=== PATIENT | male | born 1960 | race Caucasian/White ===

== ENCOUNTER 2017-03-08 12:53 | Emergency (ER) | payer OTHER ==
[~2017-03-08] VITALS: Ht 167.6 cm; Wt 84.0 kg
[~2017-03-08 12:53] MED LIST: ADVAIR 100/501 DISK IH; ADVAIR 250/501 DISK IH; ASPIR 8181 M1 PO; ASPIR-LOW81 MG PO; COZAAR25 MG PO; COZAAR50 MG PO; CYANOCOBALAM1000 MCG PO; FLEXERIL5 MG PO; FLOMAX0.4 MG PO; LEVOTHYROXINE50 MCG PO; LOMOTIL TABLET1 EACH PO; LOSARTAN POTASS25 MG PO; MILLIPRED DP5 MG PO; MOTRIN600 MG PO; MOTRIN800 MG PO; NAPROSYN500 MG PO; OMEPRAZOLE40 M1 PO; OXCARBAZEPINE150 MG PO; OXCARBAZEPINE300 MG PO; OXYCODONE HCL5 MG PO; PRAVACHOL40 MG PO; PRAVASTATIN SOD40 MG PO; PRILOSEC40 MG PO; PROAIR HFA8.5 GM IH; SYNTHROID50 MCG PO; TAMSULOSIN HCL0.4 MG PO; TOPAMAX25 MG PO; TOPIRAMATE25 MG PO; TRAZODONE HCL50 MG PO; TYLENOL WITH C1 EACH PO; VALIUM5 MG PO; ZESTRIL,PRINIVI10 MG PO; ZOFRAN4 MG PO
[2017-03-08 14:49] LABS: HEMATOCRIT 44.8 % (38.0-50.0); HEMOGLOBIN 16.3 G/DL (12.5-16.6); MCH 30.3 PG (29.0-34.0); MCHC 36.4 G/DL (30.0-36.0); MCV 83.3 FL (86-99); PLATELET COUNT 447 K/uL (156-360); RBC DIS.WIDTH-CV 12.8 % (11.8-14.6); RBC DIS.WIDTH-SD 38.9 % (39-53); RED BLOOD COUNT 5.38 M/uL (4.00-5.50); WHITE BLOOD COUNT 16.8 K/uL (4.1-10.2)
[2017-03-08 14:58] LABS: ALBUMIN 4.8 g/dL (3.2-4.8)
[2017-03-08 14:59] LABS: CHLORIDE 97 mEq/L (99-109); POTASSIUM 3.6 mEq/L (3.7-5.4); SODIUM 129 mEq/L (136-147)
[2017-03-08 15:01] LABS: GLUCOSE 101 mg/dL (70-99); TOTAL PROTEIN 8.1 g/dL (6.4-8.3)
[2017-03-08 15:03] LABS: TOTAL BILIRUBIN 1.1 mg/dL (0.0-1.0)
[2017-03-08 15:04] LABS: ALKALINE PHOSPHATASE 81 IU/L (3-129)
[2017-03-08 15:05] LABS: CREATININE 1.3 mg/dL (0.6-1.3); GFR ESTIMATE (CALCULATED) > 59 mL/min/ (58.99-99999)
[2017-03-08 15:06] LABS: AST (GOT) 16 IU/L (2-34); UREA NITROGEN (BUN) 10 mg/dL (9-23)
[2017-03-08 15:07] LABS: ALT (GPT) 16 IU/L (3-49)
[2017-03-08 15:08] LABS: LIPASE 40 U/L (1.0-51.0)
[2017-03-08 15:10] LABS: TROP-I INTERPRETATION NEGATIVE; TROPONIN-I < 0.01 ng/mL (0.0-0.30)
[2017-03-08 18:25] VITALS: BP 127/66
== END 2017-03-08 18:34 | disposition home or self-care (01) ==
LOC: EME 12:53
PROVIDERS: Emergency Medicine
DX: R11.10 Vomiting, unspecified (principal); R19.7 Diarrhea, unspecified; J45.909 Unspecified asthma, uncomplicated; J44.9 Chronic obstructive pulmonary disease, unspecified; E78.5 Hyperlipidemia, unspecified; I10 Essential (primary) hypertension; I25.2 Old myocardial infarction; K21.9 Gastro-esophageal reflux disease without esophagitis; F41.9 Anxiety disorder, unspecified; Z79.82 Long term (current) use of aspirin; Z88.8 Allergy status to other drugs, medicaments and biological substances
CPT/HCPCS: 74177; 80053; 83690; 84484; 85027; 93005; 99281; 99285; J2405; J7030

== ENCOUNTER 2017-09-03 21:04 | Emergency (ER) | payer OTHER ==
[~2017-09-03] VITALS: Ht 170.2 cm; Wt 63.2 kg
[2017-09-03 21:55] LABS: APPEARANCE CLEAR ((CLEAR)); BILIRUBIN NEGATIVE; BLOOD NEGATIVE; COLOR STRAW ((YELLOW)); GLUCOSE (STRIP) NEGATIVE; KETONES NEGATIVE; LEUKOCYTES NEGATIVE; NITRITE NEGATIVE; PROTEIN (STRIP) NEGATIVE; SPECIFIC GRAVITY 1.004 (1.000-1.030); UCUL ADDED? NO; UROBILINOGEN 0.2 MG/DL (0.2-1.0)
[2017-09-03 22:09] LABS: HEMOGLOBIN 13.7 G/DL (12.5-16.6); MCH 30.8 PG (29.0-34.0); MCV 83.1 FL (86-99); PLATELET COUNT 363 K/uL (156-360); RBC DIS.WIDTH-CV 12.4 % (11.8-14.6); RBC DIS.WIDTH-SD 37.9 % (39-53); RED BLOOD COUNT 4.45 M/uL (4.00-5.50); WHITE BLOOD COUNT 19.9 K/uL (4.1-10.2)
[2017-09-03 22:16] LABS: ALBUMIN 4.6 g/dL (3.2-4.8); CHLORIDE 102 mEq/L (99-109); POTASSIUM 3.4 mEq/L (3.7-5.4); SODIUM 134 mEq/L (136-147)
[2017-09-03 22:19] LABS: GLUCOSE 126 mg/dL (70-99); TOTAL PROTEIN 7.4 g/dL (6.4-8.3)
[2017-09-03 22:21] LABS: TOTAL BILIRUBIN 1.5 mg/dL (0.0-1.0)
[2017-09-03 22:22] LABS: ALKALINE PHOSPHATASE 65 IU/L (3-129); SERUM ETHYL ALCOHOL < 10 mg/dL
[2017-09-03 22:23] LABS: CREATININE 1.3 mg/dL (0.6-1.3); GFR ESTIMATE (CALCULATED) > 59 mL/min/ (58.99-99999)
[2017-09-03 22:24] LABS: AST (GOT) 18 IU/L (2-34); UREA NITROGEN (BUN) 14 mg/dL (9-23)
[2017-09-03 22:25] LABS: ALT (GPT) 16 IU/L (3-49); CREATINE KINASE 172 IU/L (1-294)
[2017-09-03 23:25] LABS: AMPHETAMINE NEGATIVE (500 ng/mL); BARBITURATES NEGATIVE (200 ng/mL); BENZODIAZEPINES NEGATIVE (150 ng/mL); BUPRENORPHINE NEGATIVE (10 ng/mL); COCAINE NEGATIVE (150 ng/mL); METHADONE NEGATIVE (200 ng/mL); METHAMPHETAMINE NEGATIVE (500 ng/mL); OPIATES (MORPHINE) NEGATIVE (100 ng/mL); OXYCODONE NEGATIVE (100 ng/mL); PHENCYCLIDINE NEGATIVE (25 ng/mL); PROPOXYPHENE NEGATIVE (300 ng/mL); THC CANNABINOIDS PRESUMPTIVE POSITIVE (50 ng/mL); TRICYCLIC ANTIDEPRESSANTS NEGATIVE (300 ng/mL)
[2017-09-04] MEDS ORDERED: TOPAMAX25 MG PO (00:41)
[2017-09-04] MEDS ORDERED: OXCARBAZEPINE300 MG PO (00:41)
[2017-09-04 01:38] VITALS: BP 110/84
== END 2017-09-04 01:40 | disposition home or self-care (01) ==
LOC: EME 21:04
PROVIDERS: Emergency Medicine
DX: G40.909 Epilepsy, unspecified, not intractable, without status epilepticus (principal); L55.9 Sunburn, unspecified; F12.10 Cannabis abuse, uncomplicated; I10 Essential (primary) hypertension; E78.5 Hyperlipidemia, unspecified; J44.9 Chronic obstructive pulmonary disease, unspecified; K21.9 Gastro-esophageal reflux disease without esophagitis; E05.90 Thyrotoxicosis, unspecified without thyrotoxic crisis or storm; F41.9 Anxiety disorder, unspecified; I25.2 Old myocardial infarction; Z90.49 Acquired absence of other specified parts of digestive tract; Z79.82 Long term (current) use of aspirin; Z79.51 Long term (current) use of inhaled steroids; Z88.5 Allergy status to narcotic agent; Z88.6 Allergy status to analgesic agent; Z88.8 Allergy status to other drugs, medicaments and biological substances
CPT/HCPCS: 70450; 80053; 81003; 82550; 84999; 85027; 99281; 99284; G0480; J2405; J7030

== ENCOUNTER 2017-09-04 11:58 | Emergency (ER) | payer OTHER ==
[~2017-09-04] VITALS: Ht 167.6 cm; Wt 57.7 kg
[2017-09-04 14:22] LABS: BASOPHIL (%) 0.2 % (0-1); EOSINOPHIL (%) 0.1 % (0-5); HEMATOCRIT 36.7 % (38.0-50.0); HEMOGLOBIN 13.4 G/DL (12.5-16.6); IMMATURE GRANULOCYTE (%) 0.4 % (0.0-0.7); LYMPHOCYTE (%) 11.5 % (15-42); LYMPHOCYTE COUNT 1.5 K/uL (1.0-2.8); MCH 31.3 PG (29.0-34.0); MCHC 36.5 G/DL (30.0-36.0); MCV 85.7 FL (86-99); MONOCYTE (%) 5.7 % (3-12); MONOCYTE COUNT 0.8 K/uL (0-0.8); NEUTROPHIL (%) 82.1 % (45-76); NEUTROPHIL COUNT 10.7 K/uL (1.8-6.4); PLATELET COUNT 340 K/uL (156-360); RED BLOOD COUNT 4.28 M/uL (4.00-5.50); WHITE BLOOD COUNT 13.1 K/uL (4.1-10.2)
[2017-09-04 14:24] LABS: APPEARANCE CLOUDY ((CLEAR)); BILIRUBIN NEGATIVE; BLOOD NEGATIVE; COLOR YELLOW ((YELLOW)); GLUCOSE (STRIP) NEGATIVE; KETONES NEGATIVE; LEUKOCYTES NEGATIVE; NITRITE NEGATIVE; PROTEIN (STRIP) NEGATIVE
[2017-09-04 14:29] LABS: CHLORIDE 109 mEq/L (99-109); POTASSIUM 3.2 mEq/L (3.7-5.4)
[2017-09-04 14:30] LABS: SODIUM 141 mEq/L (136-147)
[2017-09-04 14:31] LABS: GLUCOSE 108 mg/dL (70-99)
[2017-09-04 14:35] LABS: AMPHETAMINE NEGATIVE (500 ng/mL); BARBITURATES NEGATIVE (200 ng/mL); BENZODIAZEPINES NEGATIVE (150 ng/mL); BUPRENORPHINE NEGATIVE (10 ng/mL); COCAINE NEGATIVE (150 ng/mL); METHADONE NEGATIVE (200 ng/mL); METHAMPHETAMINE NEGATIVE (500 ng/mL); OPIATES (MORPHINE) NEGATIVE (100 ng/mL); OXYCODONE NEGATIVE (100 ng/mL); PHENCYCLIDINE NEGATIVE (25 ng/mL); PROPOXYPHENE NEGATIVE (300 ng/mL); THC CANNABINOIDS PRESUMPTIVE POSITIVE (50 ng/mL); TRICYCLIC ANTIDEPRESSANTS NEGATIVE (300 ng/mL)
[2017-09-04 14:35] LABS: GFR ESTIMATE (CALCULATED) > 59 mL/min/ (58.99-99999)
[2017-09-04 14:36] LABS: UREA NITROGEN (BUN) 11 mg/dL (9-23)
[2017-09-04 15:03] LABS: AMORPHOUS PHOSPHATE CRYSTALS 2+; BACTERIA NONE SEEN /HPF; EPITHELIAL CELLS NONE SEEN /HPF; MUCUS NONE SEEN /LPF; RED BLOOD CELLS NONE SEEN /HPF (0-5); UCUL ADDED? NO; WHITE BLOOD CELLS NONE SEEN /HPF (0-5)
[2017-09-04 15:25] VITALS: BP 125/68
== END 2017-09-04 14:46 | disposition home or self-care (01) ==
LOC: EME 11:58
PROVIDERS: Emergency Medicine
DX: F41.9 Anxiety disorder, unspecified (principal); F32.9 Major depressive disorder, single episode, unspecified; R44.3 Hallucinations, unspecified; G40.909 Epilepsy, unspecified, not intractable, without status epilepticus; I10 Essential (primary) hypertension; E78.5 Hyperlipidemia, unspecified; J44.9 Chronic obstructive pulmonary disease, unspecified; I25.2 Old myocardial infarction; Z79.82 Long term (current) use of aspirin; F17.200 Nicotine dependence, unspecified, uncomplicated
CPT/HCPCS: 80048; 81003; 84999; 85025; 90839; 99281; 99283

== ENCOUNTER 2017-09-28 10:18 | Emergency (ER) | payer OTHER ==
[~2017-09-28] VITALS: Ht 167.6 cm; Wt 120.0 kg
[2017-09-28 11:20] LABS: HEMATOCRIT 36.1 % (38.0-50.0); HEMOGLOBIN 13.2 G/DL (12.5-16.6); MCH 31.8 PG (29.0-34.0); MCHC 36.6 G/DL (30.0-36.0); PLATELET COUNT 308 K/uL (156-360); RBC DIS.WIDTH-CV 12.9 % (11.8-14.6); RBC DIS.WIDTH-SD 41.1 % (39-53); RED BLOOD COUNT 4.15 M/uL (4.00-5.50)
[2017-09-28 11:31] LABS: CHLORIDE 107 mEq/L (99-109); POTASSIUM 3.2 mEq/L (3.7-5.4); SODIUM 143 mEq/L (136-147)
[2017-09-28 11:32] LABS: GLUCOSE 90 mg/dL (70-99)
[2017-09-28 11:36] LABS: CREATININE 0.8 mg/dL (0.6-1.3); GFR ESTIMATE (CALCULATED) > 59 mL/min/ (58.99-99999)
[2017-09-28 11:37] LABS: UREA NITROGEN (BUN) 9 mg/dL (9-23)
[2017-09-28 11:41] LABS: TROP-I INTERPRETATION NEGATIVE; TROPONIN-I < 0.01 ng/mL (0.0-0.30)
[2017-09-28 15:06] VITALS: BP 129/78
== END 2017-09-28 15:27 | disposition home or self-care (01) ==
LOC: EME 10:18
PROVIDERS: Emergency Medicine
DX: R07.89 Other chest pain (principal); R44.0 Auditory hallucinations; R44.1 Visual hallucinations; F32.9 Major depressive disorder, single episode, unspecified; I10 Essential (primary) hypertension; E78.5 Hyperlipidemia, unspecified; I25.2 Old myocardial infarction; J44.9 Chronic obstructive pulmonary disease, unspecified; Z79.82 Long term (current) use of aspirin; Z90.49 Acquired absence of other specified parts of digestive tract
CPT/HCPCS: 70450; 71045; 80048; 84484; 85027; 90839; 93005; 99281; 99285

== ENCOUNTER 2017-10-07 19:25 | Emergency (ER) | payer OTHER ==
[~2017-10-07] VITALS: Ht 167.6 cm; Wt 54.1 kg
[2017-10-07 20:00] LABS: HEMATOCRIT 36.8 % (38.0-50.0); HEMOGLOBIN 12.8 G/DL (12.5-16.6); MCH 31.1 PG (29.0-34.0); MCHC 34.8 G/DL (30.0-36.0); MCV 89.3 FL (86-99); PLATELET COUNT 281 K/uL (156-360); RBC DIS.WIDTH-SD 42.5 % (39-53); RED BLOOD COUNT 4.12 M/uL (4.00-5.50); WHITE BLOOD COUNT 8.7 K/uL (4.1-10.2)
[2017-10-07 20:09] LABS: CHLORIDE 108 mEq/L (99-109); POTASSIUM 3.5 mEq/L (3.7-5.4); SODIUM 142 mEq/L (136-147)
[2017-10-07 20:10] LABS: GLUCOSE 97 mg/dL (70-99)
[2017-10-07 20:14] LABS: CREATININE 0.9 mg/dL (0.6-1.3); GFR ESTIMATE (CALCULATED) > 59 mL/min/ (58.99-99999)
[2017-10-07 20:15] LABS: UREA NITROGEN (BUN) 11 mg/dL (9-23)
[2017-10-07 20:22] LABS: TROP-I INTERPRETATION NEGATIVE; TROPONIN-I < 0.01 ng/mL (0.0-0.30)
[2017-10-07 21:58] LABS: TROP-I INTERPRETATION NEGATIVE; TROPONIN-I < 0.01 ng/mL (0.0-0.30)
[2017-10-07 23:09] VITALS: BP 118/71
== END 2017-10-07 23:10 | disposition home or self-care (01) ==
LOC: EME → EDBD 19:25 → EME 23:10
PROVIDERS: Emergency Medicine
DX: R07.89 Other chest pain (principal); I10 Essential (primary) hypertension; E78.5 Hyperlipidemia, unspecified; E03.9 Hypothyroidism, unspecified; J43.9 Emphysema, unspecified; K21.9 Gastro-esophageal reflux disease without esophagitis; F41.9 Anxiety disorder, unspecified; I25.2 Old myocardial infarction; Z79.82 Long term (current) use of aspirin; Z90.49 Acquired absence of other specified parts of digestive tract; Z88.5 Allergy status to narcotic agent; Z88.6 Allergy status to analgesic agent
CPT/HCPCS: 71046; 80048; 84484; 85027; 87651 90; 93005; 99281; 99285

== ENCOUNTER 2017-10-13 18:22 | Emergency (ER) | payer OTHER ==
[~2017-10-13] VITALS: Ht 167.6 cm; Wt 59.0 kg
[2017-10-13 23:44] VITALS: BP 122/71
== END 2017-10-13 23:45 | disposition home or self-care (01) ==
LOC: EME 18:22
DX: F33.9 Major depressive disorder, recurrent, unspecified (principal); F41.9 Anxiety disorder, unspecified; I10 Essential (primary) hypertension; E78.5 Hyperlipidemia, unspecified; K21.9 Gastro-esophageal reflux disease without esophagitis; J44.9 Chronic obstructive pulmonary disease, unspecified; E05.90 Thyrotoxicosis, unspecified without thyrotoxic crisis or storm; I25.2 Old myocardial infarction; Z90.49 Acquired absence of other specified parts of digestive tract; Z88.5 Allergy status to narcotic agent; Z88.6 Allergy status to analgesic agent; Z88.8 Allergy status to other drugs, medicaments and biological substances
CPT/HCPCS: 70450; 90839; 99281; 99284